=== PATIENT | female | born 1950 | race Two or more races ===

== ENCOUNTER 2019-07-01 22:32 | Emergency (ER) | payer OTHER, BC ==
[2019-07-01 22:38] VITALS: TEMP 98; BMI 27.3
--- NOTE | 2019-07-01 23:07 | PDOC ---
Documentation entered by Darian Roman SCRIBE, acting as scribe for Hilda Rea MD. Hilda Rea MD: This documentation has been prepared by the Jessie aponte Xhesika, SCRIBE, under my direction and personally reviewed by me in its entirety. I confirm that the documentation accurately reflects all work, treatment, procedures, and medical decision making performed by me. Attending Attestation - Resident Resident Name: Barry Stewart - ED Attending Attestation I have performed the following: I have examined & evaluated the patient, The case was reviewed & discussed with the resident, I agree w/resident's findings & plan, Exceptions are as noted - HPI HPI: 07/01/19 23:05 69-year-old female presents with hypertension and complaints of arm numbness and neck pain that occurred today. She said initially the fingertips on her left hand were numb but then the whole arm became numb. She complains of neck pain on the right side - Physicial Exam PE: 07/01/19 23:05 Well-nourished well-developed 69-year-old female who is alert and oriented has complaint of arm numbness and neck pain Head normocephalic atraumatic Eyes bruce eomi Neck supple no JVDs or bruits Lungs are clear to auscultation CVS regular rate and rhythm Abdomen is nontender Skin and dry extremities no deformity Neuro patient is alert and oriented x3, ambulating in the ER with no ataxia, motor strength 5/5 bilaterally she has no facial droop or confusion or slurred speech - Medical Decision Making 07/02/19 00:56 CBC does not show any leukocytosis ,there is no anemia and her platelets are within normal limits Coags are within normal limits Chemistries show that her electrolytes are unremarkable,, BUN =10 and creatinine is normal 0.6 glucose is equal to 106 troponin is less than 0.2 07/02/19 00:57 CTA of the neck does not show any dissection 07/02/19 01:41 NIHSS =zero cta head no bleed , no infarcts pt d/c home
[2019-07-01 23:45] LABS: BASO % 0.2 % (0-2.0); EOS % 3.3 % (0-4.5); HEMATOCRIT 40.1 % (32.4-45.2); HEMOGLOBIN 13.1 GM/dL (10.7-15.3); LYMPH % 28.3 % (8-40); MCH 27.5 pg (25.7-33.7); MCHC 32.7 g/dl (32.0-36.0); MEAN PLT VOLUME 7.5 fl (7.5-11.1); MONO % 9.8 % (3.8-10.2); NEUT % 58.4 % (42.8-82.8); PLATELET COUNT 267 K/MM3 (134-434); RBC 4.77 M/mm3 (3.60-5.2); WHITE BLOOD COUNT 6.5 K/mm3 (4.0-10.0)
[2019-07-01 23:57] LABS: INR 0.92 (0.83-1.09); PROTHROMBIN TIME (PATIENT) 10.8 SEC (9.7-13.0)
[2019-07-02] LABS: ACTIVATED PTT 33.7 SECONDS (25.2-36.5)
[2019-07-02 00:23] LABS: ALBUMIN 3.7 g/dl (3.4-5.0); ALK PHOS 310 U/L (45-117); ANION GAP 7 MMOL/L (8-16); BILIRUBIN,TOTAL 0.3 mg/dL (0.2-1); BLOOD UREA NITROGEN 10.1 mg/dL (7-18); CHLORIDE 104 mmol/L (98-107); CO2 26 mmol/L (21-32); CREATININE 0.6 mg/dL (0.55-1.3); GLUCOSE,RANDOM 106 mg/dL (74-106); POTASSIUM 4.1 mmol/L (3.5-5.1); SGOT/AST 23 U/L (15-37); SGPT/ALT 23 U/L (13-61); SODIUM 137 mmol/L (136-145); TOT PROT 7.8 g/dl (6.4-8.2)
[2019-07-02 00:42] VITALS: BP 126/66; PULSE 75
[2019-07-02 00:48] LABS: EPI CELLS 0.7 /HPF (0-5/HPF); HYALINE CASTS 1 /lpf (0-8); URINE APPEARANCE CLEAR; URINE BACTERIA 4.3 /hpf (NEGATIVE); URINE BILIRUBIN NEGATIVE (NEGATIVE); URINE COLOR YELLOW; URINE GLUCOSE (UA) NEGATIVE (NEGATIVE); URINE KETONE NEGATIVE (NEGATIVE); URINE LEUK ESTERASE 2+ (NEGATIVE); URINE NITRITE NEGATIVE (NEGATIVE); URINE PROTEIN NEGATIVE (NEGATIVE); URINE RBC 0 /hpf (0-4); URINE UROBILINOGEN 0.2 mg/dL (0.2-1.0); URINE WBC 6 /hpf (0-5)
--- NOTE | 2019-07-02 01:12 | PDOC ---
History of Present Illness - General Chief Complaint: Head/Neck problem Stated Complaint: BODY NUMBNESS Time Seen by Provider: 07/01/19 22:54 History Source: Patient Exam Limitations: No Limitations - History of Present Illness Initial Comments: 07/02/19 07:43 69 yo female pmh hypothyroidism presents to the ED of numbness in her left hand and neck with a "funny feeling" in her head. Pt states the symptoms started suddenly, felt as though she may pass out, was present. The episode lasted a few min and self resolved. Pt denies current symptoms including INFANTE, changes in vision, sensory changes or weakness into her extremities, neck pain, F/C/N/V. The pain in her neck is described as pulsating, never had symptoms like this in the past. Pt saw [facility] yesterday and had a normal echo. NIH Stroke Scale - Last Known Well Date/Time & Onset Date Last Known Well: 07/01/19 Time Last Known Well: 19:00 - Initial Evaluation Level of consciousness: Alert Ask patient the month and their age: Answers both correctly Ask patient to open & close eyes; make fist and let go: Obeys both correctly Best gaze (horizontal eye movement): Normal Visual field testing: No visual field loss Facial paresis (Show teeth/raise eyebrows/close eyes tight): Normal symmetrical movement Motor Function: Left Arm: Normal Motor Function: Right Arm: Normal (extends arm 90 (or 45) degrees for 10 seconds without drift Motor Function: Left Leg: Normal (extends leg 30 degrees for 5 seconds without drift) Motor Function: Right Leg: Normal (extends leg 30 degrees for 5 seconds without drift) Limb Ataxia: No ataxia Sensory(Use pinprick test arms,legs,trunk,face/side to side): Normal Best language (Describe picture, name items, read sentences): No Aphasia Dysarthria (read several words): Normal articulation Extinction and Inattention: No abnormality - Total Score NIH Stroke Scale Score: 0 Past History - Past Medical History Allergies/Adverse Reactions: Allergies Allergy/AdvReac Type Severity Reaction Status Date / Time No Known Allergies Allergy Verified 07/01/19 22:38 COPD: No Seizures: Yes - Psycho Social/Smoking Cessation Hx Smoking History: Never smoked Review of Systems - Review of Systems Constitutional: Yes: See HPI HEENTM: Yes: See HPI Respiratory: Yes: See HPI Cardiac (ROS): Yes: See HPI ABD/GI: Yes: See HPI : Yes: See HPI Musculoskeletal: Yes: See HPI Integumentary: Yes: See HPI Neurological: Yes: See HPI *Physical Exam - Vital Signs Last Vital Signs Temp Pulse Resp BP Pulse Ox 98.0 F 75 20 126/66 99 07/01/19 22:35 07/02/19 00:41 07/02/19 00:41 07/02/19 00:41 07/02/19 00:41 - Physical Exam General Appearance: Yes: Nourished, Appropriately Dressed. No: Apparent Distress HEENT: positive: EOMI Neck: positive: Supple. negative: Carotid bruit, Stridor, Tender lateral, Tender midline Respiratory/Chest: positive: Lungs Clear, Normal Breath Sounds. negative: Respiratory Distress, Accessory Muscle Use, Decreased Breath Sounds, Crackles, Rales, Rhonchi, Stridor, Wheezing Cardiovascular: positive: Regular Rhythm, Regular Rate, S1, S2. negative: Edema, JVD, Murmur Vascular Pulses: Dorsalis-Pedis (R): 4+, Doralis-Pedis (L): 4+ Gastrointestinal/Abdominal: positive: Flat, Soft. 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 negative: Facial Droop, Numbness, Sensory Deficit ED Treatment Course - LABORATORY CBC & Chemistry Diagram: 07/01/19 23:25 07/01/19 23:25 - ADDITIONAL ORDERS Additional order review: Laboratory Results 07/02/19 07/01/19 07/01/19 00:30 23:25 23:25 PT with INR 10.80 INR 0.92 PTT (Actin FS) 33.7 Sodium 137 Potassium 4.1 Chloride 104 Carbon Dioxide 26 Anion Gap 7 L BUN 10.1 Creatinine 0.6 Est GFR (CKD-EPI)AfAm 106.28 Est GFR (CKD-EPI)NonAf 91.70 Random Glucose 106 Calcium 9.0 Total Bilirubin 0.3 AST 23 ALT 23 Alkaline Phosphatase 310 H Creatine Kinase 90 Troponin I < 0.02 Total Protein 7.8 Albumin 3.7 TSH 6.42 H Urine Color Yellow Urine Appearance Clear Urine pH 6.0 Ur Specific [place] 1.019 Urine Protein Negative Urine Glucose (UA) Negative Urine Ketones Negative Urine Blood Negative Urine Nitrite Negative Urine Bilirubin Negative Urine Urobilinogen 0.2 Ur Leukocyte Esterase 2+ H Urine WBC (Auto) 6 Urine RBC (Auto) 0 Urine Casts (Auto) 1 U Epithel Cells (Auto) 0.7 Urine Bacteria (Auto) 4.3 07/01/19 23:25 RBC 4.77 MCV 84.0 MCHC 32.7 RDW 14.0 MPV 7.5 Neutrophils % 58.4 Lymphocytes % 28.3 Monocytes % 9.8 Eosinophils % 3.3 Basophils % 0.2 - RADIOLOGY Radiology Studies Ordered: Category Date Time Status HEAD CT WITHOUT CONTRAST [CT] Stat CT Scan 07/01/19 23:14 Taken NECK CTA [CT] Stat CT Scan 07/01/19 23:12 Taken CHEST X-RAY PORTABLE* [RAD] Stat Radiology 07/02/19 00:48 Taken Medical Decision Making - Medical Decision Making 07/02/19 07:49 69 yo female pmh hypothyroidism presents to the ED of numbness in her left hand and neck with a "funny feeling" in her head. Pt states the symptoms started suddenly, felt as though she may pass out, was present. The episode lasted a few min and self resolved. Pt denies current symptoms including INFANTE, changes in vision, sensory changes or weakness into her extremities, neck pain, F/C/N/V. The pain in her neck is described as pulsating, never had symptoms like this in the past. Pt saw [facility] yesterday and had a normal echo. vitals show elevated BP 190 systolic on triage. Due to neurologic deficits and complaint of new neck pain, CTA neck and non con head CT ordered CT neg for stroke or dissection At the bedside, 120s systolic and symptoms resolved Labs WNL Shared in decision making with pt regarding admission of elevated BP and light headedness/pre syncope, states she would like to follow up with Cardiology as an outpatient and will return to the ER for further concerns Pt is AOX3 with full capacity Pt DC home with strict return precautions Discharge - Discharge Information Problems reviewed: Yes Clinical Impression/Diagnosis: Elevated blood pressure reading, Numbness and tingling Disposition: HOME - Admission No - Follow up/Referral Referrals: Kenny Gonzales MD [Primary Care Provider] - Christian Antony MD [Staff Physician] - - Patient Discharge Instructions Patient Printed Discharge Instructions: DI for High Blood Pressure, DI for Numbness/tingling Additional Instructions: Please see your Primary Doctor within the next 48 hours and call your [facility] for an appointment. Return to the ER for new or concerning symptoms including but not limited to: headaches, changes in vision, weakness or sensory deficits into 1 extremity. Continue taking your home dosed medications as prescribed. Thank you - Post Discharge Activity
--- NOTE | 2019-07-02 08:42 | EKG ---
Test Reason : Blood Pressure : / mmHG Vent. Rate : 076 BPM Atrial Rate : 076 BPM P-R Int : 156 ms QRS Dur : 092 ms QT Int : 396 ms P-R-T Axes : 041 -08 012 degrees QTc Int : 445 ms NORMAL SINUS RHYTHM POSSIBLE LEFT ATRIAL ENLARGEMENT BORDERLINE ECG NO PREVIOUS ECGS AVAILABLE Confirmed by MD BARNEY, MUNIR ([id number]) on 07/02/2019 8:42:49 AM Referred By: Confirmed By:MUNIR CORLEY MD
== END 2019-07-02 01:38 | disposition home or self-care (01) ==
LOC: JER 22:32
DX: R03.0 Elevated blood-pressure reading, without diagnosis of hypertension (principal); M54.2 Cervicalgia; E03.9 Hypothyroidism, unspecified; Z86.69 Personal history of other diseases of the nervous system and sense organs
CPT/HCPCS: 36415; 70450-TC; 70498-TC; 71045-TC-FY; 80053; 81003; 82550; 84443; 84484; 85025; 85610; 85730; 86850; 86900; 86901; 93005; 93010; 99285-25; Q9967